=== PATIENT | female | born 1955 | race Caucasian/White ===

== ENCOUNTER 2019-06-15 08:57 | Outpatient (CLI) | payer MEDICARE, OTHER, SELFPAY ==
[2019-06-15 10:14] LABS: Blood Urea Nitrogen 22 mg/dL (7-17); Calcium 9.5 mg/dL (8.4-10.2); Carbon Dioxide 29 mmol/L (22-30); Chloride 97 mmol/L (98-107); Estimated Glomerular Filt Rate 45; Glucose 88 mg/dL (65-105); Potassium 3.8 mmol/L (3.4-5.0); Sodium 135 mmol/L (137-145)
== END 2019-06-15 08:58 | disposition home or self-care (01) ==
PROVIDERS: PCP Family Medicine
DX: I50.32 Chronic diastolic (congestive) heart failure (principal)
CPT/HCPCS: 36415; 80048

== ENCOUNTER 2020-03-28 08:51 | Outpatient (NON) | payer MEDICARE, OTHER, SELFPAY ==
[2020-03-29 21:14] LABS: SARS-CoV-2 RNA PCR Negative
== END 2020-03-28 08:52 ==
LOC: ANHCOVIDDT 08:53
PROVIDERS: PCP Family Medicine; Visit Provider Family Medicine
DX: R50.9 Fever, unspecified (principal); Z20.828 Contact with and (suspected) exposure to other viral communicable diseases
CPT/HCPCS: 87635; C9803; U0003

== ENCOUNTER 2020-07-17 13:29 | Outpatient (CLI) | payer MEDICARE, OTHER, SELFPAY | END 2020-07-17 13:30 | disposition home or self-care (01) | LOC: ANHCOVIDVC 13:29 | PROVIDERS: PCP Family Medicine | DX: Z23 Encounter for immunization (principal) | CPT/HCPCS: 0001A; 91300 ==

== ENCOUNTER 2020-08-07 13:41 | Outpatient (CLI) | payer MEDICARE, OTHER, SELFPAY | END 2020-08-07 13:42 | disposition home or self-care (01) | LOC: ANHCOVIDVC 13:41 | PROVIDERS: PCP Family Medicine | DX: Z23 Encounter for immunization (principal) | CPT/HCPCS: 0002A; 91300 ==

== ENCOUNTER 2020-11-20 08:41 | Emergency (ER) | payer MEDICARE, OTHER, SELFPAY ==
--- NOTE | ~2020-11-20 | CT_ITS ---
EXAMINATION: CT abdomen pelvis w con DATE: 11/20/2020 10:08 INDICATION: Lower abdominal pain. Nausea, vomiting, diarrhea TECHNIQUE: Computed tomography (CT) of the abdomen and pelvis was performed with 100 cc Omnipaque 350 intravenous contrast. Automated exposure control and iterative reconstruction technique were employe d. Exam dose: 1523.04 mGy-cm total exam DLP. COMPARISON: 04/01/2019 CT abdomen pelvis FINDINGS: There is mild atelectasis at the lung bases, left greater than right. Status post sternotomy and tricuspid valve replacement. Cardiomegaly. No hepatic space-occupying mass lesion is evident. Status post cholecystectomy. No bile duct or pancr eatic duct dilatation. No pancreatic mass lesion or calcification is evident. Normal splenic size. Normal morphology of the adrenal glands. No renal mass lesion or urinary tract calculus or hydroureteronephrosis. The urinary bladder is unrem arkable. Status post hysterectomy. Normal caliber of the abdominal aorta. No intraperitoneal or retroperitoneal or pelvic mass lesion or adenopathy or ascites. There is inflammatory fat stranding adjacent to the mid to distal sigmoid colon and numerous divertic kahlil. There are scattered areas of intraperitoneal gas some adjacent to the liver and within the umbil ical hernia. Small amount of free fluid in the dependent pelvis. No bowel obstruction is detected. Liquid stool is noted in the right colon. Hemangioma of L2 vertebral body. IMPRESSION: Diverticulitis of the sigmoid colon with associated mild intraperitoneal free air, small amount of dependent free fluid in the pelvis Reviewed, dictated and finalized at [facility]. Reviewed, dictated and finalized at location [facility]. IMPRESSION: Diverticulitis of the sigmoid colon with associated mild intraperi toneal free air, small amount of dependent free fluid in the pelvis
[2020-11-20 08:52] VITALS: BP 96/50; PULSE 80; RESP 18; TEMP 36.6; O2SAT 97
[2020-11-20 09:10] LABS: Basophils Percent Auto 0.3 % (0.2-1.2); Eosinophils Absolute Auto 0.1 K/mm3 (0-0.3); Eosinophils Percent Auto 2.1 % (0-4.4); Hematocrit 34.6 % (37.0-47.0); Immature Granulocyte Absolute 0.02 K/mm3 (0.00-0.031); Immature Granulocyte Percent A 0.3 % (0-0.5); Lymphocytes Absolute Auto 0.62 K/mm3 (0.9-3.2); Mean Corpuscular HGB Conc 31.8 g/dl (32-36); Mean Corpuscular Hemoglobin 27.1 pg (26-34); Mean Corpuscular Volume 85.2 fl (80-100); Mean Platelet Volume 10.9 fl (7.4-10.4); Monocytes Absolute Auto 0.4 K/mm3 (0.1-0.6); Monocytes Percent Auto 5.9 % (2.6-8.5); Neutrophils Absolute Auto 5.1 K/mm3 (1.3-6.7); Neutrophils Percent Auto 81.4 % (45.5-73.1); Platelet Count Result 186 k/mm3 (150-375); Red Blood Count 4.06 M/mm3 (4.2-5.4); Red Cell Distribution Width 16.5 % (11.5-14.5); White Blood Count 6.2 K/mm3 (4.5-10.0)
[2020-11-20 09:19] LABS: Alanine Aminotransferase 34 U/L (4-35); Albumin Level 3.7 g/dL (3.5-5.1); Alkaline Phosphatase 90 U/L (38-126); Anion Gap 5 mmol/L (8-16); Aspartate Amino Transferase 27 U/L (14-36); Bilirubin,Total 0.9 mg/dL (0.2-1.3); Blood Urea Nitrogen 26 mg/dL (7-17); Calcium 8.8 mg/dL (8.4-10.2); Carbon Dioxide 35 mmol/L (22-30); Chloride 93 mmol/L (98-107); Estimated CRCL calculation 40 ml/min; Estimated Glomerular Filt Rate 32; Glucose 119 mg/dL (65-110); Lipase 21 U/L (23-300); Potassium 3.6 mmol/L (3.4-5.0); Sodium 133 mmol/L (137-145)
--- NOTE | 2020-11-20 09:21 | ED.ABDPAIN ---
HPI - Abdominal Pain General Chief Complaint: Abdominal Pain Stated Complaint: Right Lower Quad Pain Time Seen by Provider: 11/20/20 08:51 Source: patient Mode of arrival: ambulatory Limitations: no limitations History of Present Illness HPI narrative: Patient is a 65 year old female who presents with complaints of abdominal pain x 3 days, increasing over the past day. Patient rates pain as 10/10. She reports feeling of fullness. She reports nausea with dry heaving yesterday. She reports diarrhea starting last pm. Patient reports she felt febrile but has not taken temperature. Patient reports Covid vaccine x 2 and denies recent known exposure. She reports taking Gas X without relief. Patient has a significant cardiac history, lupus and history of CVA. Patient does take anticoagulants. Related Data Home Medications Medication Instructions Recorded Confirmed bumetanide 11/20/20 bumetanide 11/20/20 duloxetine mg PO 11/20/20 duloxetine mg PO 11/20/20 hydrocodone-acetaminophen 11/20/20 11/20/20 losartan 11/20/20 lubiprostone [Amitiza] mcg PO 11/20/20 metoprolol succinate PO 11/20/20 metoprolol succinate PO 11/20/20 omeprazole 11/20/20 potassium chloride [Klor-Con] 11/20/20 11/20/20 ropinirole mg 11/20/20 spironolactone 11/20/20 zolpidem PO 11/20/20 Allergies Allergy/AdvReac Type Severity Reaction Status Date / Time adhesive tape Allergy Unknown RASH, SKIN Verified 11/20/20 09:29 TEARS isosorbide Allergy Unknown NAUSEA Verified 11/20/20 09:29 hydroxychloroquine Allergy Hives Verified 11/20/20 09:29 [From Plaquenil] pregabalin [From Lyrica] Allergy Hives Verified 11/20/20 09:29 Sulfa (Sulfonamide Allergy Rash Verified 11/20/20 09:29 Antibiotics) topiramate AdvReac Mild NAUSEA Verified 11/20/20 09:29 gabapentin AdvReac Unknown NAUSEA Verified 11/20/20 09:29 meloxicam AdvReac Unknown NAUSEA Verified 11/20/20 09:29 COTTONSEED OIL Allergy Unknown SWELLING Uncoded 07/18/17 11:29 AT INJECTION SITE Review of Systems Review of Systems: Narrative: CONSTITUTIONAL: Reports feeling feverish, denies chills or sweats. EYES: Denies visual changes, redness, or discharge. ENT: Denies rhinorrhea, congestion, sore throat, or otalgia. CARDIOVASCULAR: Denies chest pain, palpitations, or edema. RESPIRATORY: Denies cough or dyspnea. GASTROINTESTINAL: Reports abdominal pain, nausea, vomiting, and diarrhea. GENITOURINARY: Denies dysuria or hematuria. SKIN: Denies rash or itching. MUSCULOSKELETAL: Denies back pain, joint pain, or myalgia. NEUROLOGIC: Denies headache, numbness, dizziness, or weakness. PSYCHIATRIC: Denies anxiety or depression. [facility] Past Medical History Medical History (Updated 11/20/20 @ 11:00 by BROOK Ulrich) Afib Anemia Anxiety Arthritis ASD (atrial septal defect) Asthma Brain bleed CAD (coronary artery disease) Carpal tunnel syndrome CHF (congestive heart failure) Chronic back pain Diverticulitis Fibromyalgia GERD (gastroesophageal reflux disease) GI bleed Gout Hiatal hernia History of bleeding ulcers History of blood transfusion HTN (hypertension) Hypothyroid Lupus per patient history Migraine Pacemaker Panic attack Sleep apnea Surgical History Surgical History History of adenoidectomy History of bladder surgery History of cardiac catheterization History of carpal tunnel release History of cholecystectomy History of hysterectomy History of knee replacement, total History of Quin fundoplication History of spinal fusion History of tonsillectomy History of tubal ligation Hx of CABG Family History Family History Father Patient's father is in good health Social History Social History (Updated 11/20/20 @ 09:25 by BROOK Ulrich) Smoking status: Never smoker Alcohol intake: never Substance use: never Living a
[2020-11-20] MEDS: MORPHINE SULFATE (*CRX) 4 MG/ML INJ IV PUSH (09:35)
[2020-11-20 09:36] LABS: Add Urine Microscopic? YES; Appearance Urine Cloudy (Clear); Bacteria Urine Trace /hpf; Bilirubin Urine Negative (Negative); Blood Urine Negative (Negative); Color Urine Amber (Yellow); Glucose Urine UA Negative (Negative); Hyaline Casts Urine 30-49 /lpf; Ketones Urine Negative (Negative); Leukocyte Esterase Ur 2+ LEU/UL (Negative); Mucus Urine Rare /lpf; Nitrate Urine Negative (Negative); Protein Urine Negative (Negative); Specific Grav Ur 1.014 (1.001-1.035); Squamous Epithelial Cell Urine Occasional /hpf (Few); Transitional Epi Cells Urine Rare /hpf (None Seen); Urobilinogen Urine Negative mg/dL (<2.0)
[2020-11-20] MEDS: ONDANSETRON INJ 4 MG/2 ML VIAL IV PUSH (09:37)
[2020-11-20 11:38] VITALS: BP 126/62; PULSE 81; RESP 16; O2SAT 100
== END 2020-11-20 11:39 | disposition home or self-care (01) ==
PROVIDERS: Emergency Medicine; Emergency Provider Nurse Practitioner; PCP Family Medicine
DX: K57.92 Diverticulitis of intestine, part unspecified, without perforation or abscess without bleeding (principal); I48.91 Unspecified atrial fibrillation; F41.9 Anxiety disorder, unspecified; I11.0 Hypertensive heart disease with heart failure; I50.9 Heart failure, unspecified; E03.9 Hypothyroidism, unspecified; I25.10 Atherosclerotic heart disease of native coronary artery without angina pectoris; Z79.891 Long term (current) use of opiate analgesic
CPT/HCPCS: 36415; 74177; 80053; 81001; 83690; 85025; 96374; 96375; 99284; J2270; J2405; Q9967

== ENCOUNTER → 2021-10-23 08:47 | Outpatient (CLI) | payer MEDICARE, OTHER, SELFPAY ==
--- NOTE | ~2021-10-23 | CT_ITS ---
EXAMINATION: CT lumbar spine wo con DATE: 10/23/2021 09:04 INDICATION: Lumbar radiculopathy . TECHNIQUE: Computed tomography (CT) of the lumbar spine was performed without intravenous contrast. A utomated exposure control and iterative reconstruction technique were employed. The dose-length produ ct was 888.10 mGy-cm. COMPARISON: None. FINDINGS: 5 nonrib-bearing lumbar-type vertebral bodies. The last fully formed disc space is designat ed L5-S1. Lumbar scoliosis. Pedicles intact. Normal vertebral body alignment. Vertebral body heights preserved. Mild disc space narrowing at L4-5 and L5-S1. L2 hemangioma. Mild degenerative change in th e right SI joint. Individual levels discussed as follows: T11-T12: Mild diffuse bulge. There is mild facet joint osteoarthritis. There is no neural foraminal s tenosis. There is no central canal stenosis. T12-L1: The disc does not extend beyond the endplate margin. There is no facet joint osteoarthritis. There is no neural foraminal stenosis. There is no central canal stenosis. L1-L2: The disc does not extend beyond the endplate margin. There is no facet joint osteoarthritis. T here is no neural foraminal stenosis. There is no central canal stenosis. L2-L3: Mild diffuse bulge. There is mild facet joint osteoarthritis. There is no neural foraminal ted nosis. There is no central canal stenosis. L3-L4: Mild diffuse bulge with a left foraminal component. There is moderate right and mild left face t joint osteoarthritis. There is mild left neural foraminal stenosis. There is no central canal steno sis. L4-L5: Moderate diffuse bulge, with a left foraminal predominance, and likely with a 6 mm right parac entral protrusion. There is moderate facet joint osteoarthritis. There is mild neural foraminal steno sis. There is mild central canal stenosis. L5-S1: Moderate diffuse bulge. There is severe facet joint osteoarthritis. There is moderate right an d mild left neural foraminal stenosis. There is mild central canal stenosis. IMPRESSION: 1. Moderate L4-5 degenerative disc disease, likely with a 6 mm right paracentral protrusion that narr ows the right lateral recess at this level. 2. Moderate right L5-S1 neural foraminal narrowing secondary to a combination of moderate degenerativ e disc change and severe facet arthropathy. 3. More mild degrees of degenerative disc change, facet arthropathy, canal narrowing, and neural fora robbie narrowing described above. Reviewed, dictated and finalized at [facility]. IMPRESSION: 1. Moderate L4-5 degenerative disc disease, likely with a 6 mm right paracentra l protrusion that narrows the right lateral recess at this level. 2. Moderate right L5-S1 neural foraminal narrowing secondary to a combination o f moderate degenerative disc change and severe facet arthropathy. 3. More mild degrees of degenerative disc change, facet arthropathy, canal narr owing, and neural foraminal narrowing described above.
== END ==
PROVIDERS: PCP Family Medicine; Visit Provider Nurse Practitioner Family
DX: M54.16 Radiculopathy, lumbar region (principal); M51.36 Other intervertebral disc degeneration, lumbar region; M51.26 Other intervertebral disc displacement, lumbar region
CPT/HCPCS: 72131

== ENCOUNTER 2022-04-24 07:23 | Outpatient (CLI) | payer MEDICARE, OTHER, SELFPAY ==
[2022-04-24 08:34] LABS: INR 1.6
== END 2022-04-24 07:24 | disposition home or self-care (01) ==
LOC: ANHLAB 07:26
PROVIDERS: PCP Family Medicine; Visit Provider Pain Medicine Pain Medicine
DX: Z79.01 Long term (current) use of anticoagulants (principal)
CPT/HCPCS: 36415; 85610

== ENCOUNTER 2023-12-24 07:05 | Outpatient (CLI) | payer MEDICARE, OTHER, SELFPAY ==
[2023-12-24 08:33] LABS: INR 1.1; Prothrombin Time 14.3 Seconds (11.1-14.7)
== END 2023-12-24 07:06 | disposition home or self-care (01) ==
LOC: ANHLAB 07:09
PROVIDERS: Visit Provider Pain Medicine Pain Medicine
DX: Z79.01 Long term (current) use of anticoagulants (principal)
CPT/HCPCS: 36415; 85610

== ENCOUNTER 2024-01-14 09:23 | Outpatient (CLI) | payer MEDICARE, OTHER, SELFPAY ==
[2024-01-14 10:11] LABS: Prothrombin Time 14.1 Seconds (11.1-14.7)
== END 2024-01-14 09:24 | disposition home or self-care (01) ==
LOC: ANHLAB 09:27
PROVIDERS: Visit Provider Pain Medicine Pain Medicine
DX: Z79.01 Long term (current) use of anticoagulants (principal)
CPT/HCPCS: 36415; 85610

== ENCOUNTER 2024-04-13 06:59 | Outpatient (CLI) | payer MEDICARE, OTHER, SELFPAY ==
[2024-04-13 07:47] LABS: INR 1.5; Prothrombin Time 18.2 Seconds (11.1-14.7)
== END 2024-04-13 07:00 | disposition home or self-care (01) ==
PROVIDERS: Visit Provider Pain Medicine Pain Medicine
DX: Z79.01 Long term (current) use of anticoagulants (principal)
CPT/HCPCS: 36415; 85610

== ENCOUNTER 2024-04-14 06:40 | Outpatient (CLI) | payer MEDICARE, OTHER, SELFPAY ==
[2024-04-14 07:10] LABS: INR 1.3; Prothrombin Time 16.2 Seconds (11.1-14.7)
== END 2024-04-14 06:41 | disposition home or self-care (01) ==
LOC: ANHLAB 06:42
PROVIDERS: Visit Provider Pain Medicine Pain Medicine
DX: Z79.01 Long term (current) use of anticoagulants (principal)
CPT/HCPCS: 36415; 85610

== ENCOUNTER 2025-01-06 15:30 | Outpatient (CLI) | payer MEDICARE, OTHER, SELFPAY ==
--- OUTSIDE RECORDS SUMMARY | 2011-11-26 09:10 | XMS_ITS | Continuity of Care Document ---
Author Organization [facility] Address [address] [place] [address] Phone Care Team Providers Care Tumbling And Rolling Supervisor Name Role Phone Unavailable Unavailable Unavailable Procedures Procedure Date Work/medical disability examination JAMEY X-ray exam of wrist, complete 2 X-ray exam of wrist, complete 2 Advance Directives Directive Yes / No Effective Date File Name Resuscitation Not Answered N/A N/A Life Support Not Answered N/A N/A Intubation Not Answered N/A N/A Antibiotics Not Answered N/A N/A IV Fluid Support Not Answered N/A N/A Tube Feed Not Answered N/A N/A Other Directive N/A N/A WARNING:The information contained in this section is historical and is provided for information only and does not constitute a legal document or any assurance that the information is still accurate. Please verify the information with the payne of the legal document before using it for clinical purposes. Encounters Encounter Description Practice Location Reason(s) For Visit Diagnoses Date Provider Providers Copied on Encounter Work/medical disability examination [facility], [address], [place], [place], [id number], [place] tel:[phone] [facility] RM 2 No Information Family History Family Member Type Diagnosis Age At Onset No Information Payers Payer name Insurance type Covered alliance party ID Authoriza tion(s) [facility] Workers Compensation Adm WC [id number] Social History Type Description Quantity Date Captured Comments Alcohol Use Details Unknown Caffeine Use Details Unknown Tobacco Use Status No Information Smoking Status Never smoker Sex Female Vital Signs Date / Time: Height Weight BMI Pulse Rate Blood Pressure Temperature Respiratory Rate Body Surface Area Head Circumference Head Circ. Percentile Wt./Robert. Percentile BMI percentile Pulse Ox Inhaled Ox 1:19 PM 68.00 in 260.00 lbs 39.5 3 kg/m eter (2) 146/90 mm[Hg] Chief Complaint And Reason For Visit No Information Reason For Referral Reason For Referral No Information History Of Present Illness Encounter Date Complaint History Of Prese nt Illness No Information Functional Status Date Functional Assessmen t No Information Instructions Date Instruction Additional Infor mation No Information Assessments Type Assessment Date No Information Patient Care Teams Name Effective Dates (start - stop) Status Members No Information
--- OUTSIDE RECORDS SUMMARY | 2025-01-06 15:35 | XMS_ITS | Patient Health Record ---
Author Organization [facility] Address [address] [place] [address] Care Team Providers Care Research Program Manager Name Role Phone Andi CADET, [facility] Primary Care Provider Unavaila ble Allergies Allergen (clinical drug ingredient) Drug/Non Drug Allergy documented on EMR Reaction Allergy Type Onset Date Status Lyceria (uncoded) Unknown Allergy Ac tive Topomax with Meloxic am (uncoded) Unknown Allergy Active Cottonseed Oil Unknown Drug Allergy Ac tive gabapentin Gabapentin Unknown Drug Allergy Activ e Imdur Unknown Drug Allergy Active tramadol Tramadol HCl Unknown Drug Allergy Acti ve Reason For Referral No Information Medications Medication SIG (Take, Route, Frequency, Duration) Notes Start Date End Date Status MiraLax Active Eliquis Active Klor-Con Active Pepcid 20 MG 1 tablet Orally twice a day for 30 day(s) 08/24/2019 Active rOPINIRole HCl Activ e Amitiza 8 MCG Orally Active Cymbalta Active Mupirocin Active Metoprolol Succinate Active Spironolactone Activ e Xopenex Active Levothyroxine Sodium Active OTC/Vitamins Zyrtec, Melatonin, Calcium, Jeronimo Red, Tylenol with codeine, COQ10 Active Losartan Potassium A ctive Inhaler Decongestant Active Furosemide Active HYDROcodone-Acetaminoph en Active Allopurinol Active amLODIPine Besylate Active Zolpidem Tartrate Ac tive Immunizations Vaccine Route Administration Date Status Comme nts Influenza, seasonal, injecta ble, preservative free, 3 yrs and above Unknown 02/16/2019 Administered Social History Tobacco Use: Social History Observation Description Date Details (start date - stop date) Never Smoker NA - NA Tobacco Use/Smoking Question Answer Notes Are you a nonsmoker Problems Problem Type SNOMED Code ICD Code Onset Dates Problem Status W/U Status Risk Notes Problem Nausea (578982816) Nausea (R11.0) Active confirmed Problem Hematochezia (661696818) Hematochezia (K92.1) Active confirmed Problem Abdominal pain (21456008) Abdominal pain (R10.9) Active confirmed She comes in fo r abdominal pain that occurs in the right upper quadrant and radiates to her left lower side. She describes it as a sharp shooting pain. Her discomfort was so severe in early August and she went to the ER, where both blood work and a CT scan were unremarkable. The CT revealed constipation, which is not new. She has known IBS-C. She has associated nausea. Her PCP recommend she begin both a PPI and Zofran. She has not started the Prilosec, but Zofran has improved her nausea. She has undergone two Quin Fundoplication surgeries, most recent was in 2009. She has a history of peptic ulcer disease. Differential diagnosis includes peptic ulcer, gastritis, partial bowel obstruction, gallbladder disease, or others. Problem Family history of malignant neoplasm of gastrointestinal tract (017604300) Family history of colon cancer (Z80.0) Active confirmed Problem History of polyp of colon (929871465) History of colon polyps (Z86.010) Active confirmed Her last colonoscopy was in 2018 with findings of polyps. Her sister was diagnosed with colon cancer at the age of 57. She is due for a repeat colonoscopy in 2020. A copy of her last procedure was not available for review today. Problem Dysphagia (38371778) Dysphagia (R13.12) Active confirmed This has been o n and off for years with both solid and liquids, most likely a result of her Quin Fundoplication surgeries. She denies having to vomit items up. She has been dilated in the past. Her most recent EGD was in 2018, but a copy is not available for review today. Problem Long-term current use of drug therapy (005798439) Antiplatelet or antithrombotic long-term use (Z79.02) Active confirmed Problem Chronic constipation (962877421) Chronic constipation (K59.09) Active confirmed She manages thi s symptom with MiraLax, one capful daily, and Amitiza. Problem Cardiac pacemaker in situ (149585442) History of pacemaker (Z95.0) Active confirmed Problem History of irritable bowel syndrome (37040188955241) History of IBS (Z87.19) Active confirmed Problem Atrial fibrillation (03422042) A-fib (I48.91) Active confirmed She is in AFib. She has a pacemaker in place. She was scheduled to undergo an ablation, but canceled related to Covid-19. She take Eliquis daily. She is seen by her handbag framer and electrophysiolog ist as directed. Plan Of Treatment Pending Test Test Name Order Date Xray Upper GI w/ Small Bowel 08/19/2019 Insurance Providers Payer Name Payer Address Payer Phone Subscriber Number Group Number Insured Name Patient Relationship to Insured Coverage Start Date Coverage End Date [facility] Medicare Advantage PPO [address] [address] [place] [address] [id number] Jarek Fischer Spouse - patient is the spouse of the insured [employer] [address] [place] [address] [id number] Jarek Fischer Spouse - patient is the spouse of the insured Medical (General) History Medical History History ICD Code IBS GERD Hiatal hernia Colon polyps Diverticulosis/Diverticlulitis Ulcers Anemia Fibromyalgia Gout Asthma BHATT CHF Hypertension Stroke Kidney problems Migraines Sleep apnea Hearing loss Thyroid disease Surgical History Surgery Date(Month/Year) EGD (outside provider) 2018 Colonoscopy (outside provider) 2018 Hiatal hernia repair Sinus Tonsillectomy Open heart Bladder sling Carpal tunnel Cervical fusion Right meniscus removal Cholecystectomy Maze oblation for A-fib x2 Sprague on back of neck Right knee arthroscopy Pacemaker placement Right knee replacement Osteoma bone tumor Hospitalization History Reason Date(Month/Year) Blood clot
--- OUTSIDE RECORDS SUMMARY | 2025-01-06 15:35 | XMS_ITS | Patient Health Record ---
Author Organization [facility] Address [address] [place] [address] Care Team Providers Care Nurse Infection Control Name Role Phone UNKNOWN, UNKNOWN Primary Care Provider Unavailab saranya Navarroa Patricia Unavailable [phone] Allergies Allergen (clinical drug ingredient) Drug/Non Drug Allergy documented on EMR Reaction Allergy Type Onset Date Status Adhesive tape (uncoded) Unknown Allergy Active Cottonseed (uncoded) Unknown Allergy Active Latex Latex tape (uncoded) Unknown Allergy Active Keflex Unknown Drug Allergy Active pregabalin Lyrica Unknown Drug Allergy Active gabapentin Gabapentin Unknown Drug Allergy Activ e Non-steroidal anti-inflammatory agent (FN) NSAIDs Unknown Drug Allergy Active Substance with sulfonamide structure and antibacterial mechanism of action (substance) Sulfa Antibiotics Unknown Drug Allergy Active tramadol Tramadol Unknown Drug Allergy Active Reason For Referral No Information Medications Medication SIG (Take, Route, Frequency, Duration) Notes Start Date End Date Status Klor-Con Active rOPINIRole HCl Activ e Spironolactone 25 MG Oral; Duration: 90 Days Active Systane Active busPIRone HCl 10 MG Oral; Duration: 30 Days Active Losartan Potassium A ctive Warfarin Sodium 5 MG Oral; Duration: 90 Days Active MiraLax Active Synthroid 112 MCG TAKE 1 TABLET BY AREN TH DAILY Oral; Duration: 90 Days Active ZyrTEC Active Pantoprazole Sodium 40 MG Oral; Duration: 76 Days Active Calcium Active HYDROcodone-Acetaminophen 5-325 MG Oral; Duration: 7 Days Activ e Tylenol Arthritis Pain Active Bumetanide 1 MG Oral; Duration: 30 Days Active Tylenol with Codeine #3 Active Zolpidem Tartrate ER 12.5 MG TAKE 1 TABL ET BY MOUTH NIGHTLY AT BEDTIME Oral; Duration: 90 Days Active Magnesium Active Metoprolol Succinate ER 25 MG Oral; Duration: 90 Days Acti ve B Complex Active Colchicine 0.6 MG Oral; Duration: 15 Days Active Vitamin D3 Active Cymbalta Active Social History Tobacco Use: Social History Observation Description Date Details (start date - stop date) Never Smoker NA - NA Tobacco Use/Smoking Question Answer Notes Are you a nonsmoker Plan Of Treatment No Information Insurance Providers Payer Name Payer Address Payer Phone Subscriber Number Group Number Insured Name Patient Relationship to Insured Coverage Start Date Coverage End Date [employer] MED[employer]ARE [address] [place] [address] [id number] Kacie Fischer Self - patient is the insured [employer] [address] [place] [phone] [id number] Kacie Fischer Self - patient is the insured Medical (General) History Medical History History ICD Code A-fib, Anemia, anxiety disor myrna, RA, Asthma, GERD/reflux, Gout, CHF, Kidney problems, Liver disease (BHATT), Migraines, Neuropathy of feet, Osteoporosis, Pacemaker, Pneumonia, Stroke(06/09/04), Thyroid problems, Vein problems, Surgical History Surgery Date(Month/Year) Sinus surgery, 1972,1986 Tonsillectomy/[place] 1958, ASD repair open heart 07/1979 Complete hysterectomy 09/1979 Bladder sling 1998 Carpal tunnel 1998 Osteoma Bone tumor forehead sinus(not ab le to take out) 07/2017 Open heart- new tricuspid valve, new pac emaker, new lead 09/2019 nodules removed back of neck 11/2020 Colorectal surgery for perfo ration of sigmoid colon, Fistula bladder perf 06/2021
--- OUTSIDE RECORDS SUMMARY | 2025-01-06 15:35 | XMS_ITS | Clinical Summary ---
Author Organization [facility] Address [address] [place] [address] Care Team Providers Care Rn Delivery Name Role Phone [place] Daily [facility] Primary Care Provider + Source Comments [facility],non-owned Affiliates and Associated Physician Practices is amultiple site organization consisting of ambulatory clinics and hospital sitesin [place], [place], [place] and [place]. This disclosure is being madepursuant to the Care Everywhere program and may not contain all information available regarding this patient. Last updated 18.[facility] Allergies Active Allergy Reactions Criticality Noted Date Comments Cottonseed Oil 07/03/2015 Latex 07/03/2015 Meloxicam 07/03/2015 Topiramate 07/03/2015 Medications * Be aware that medications may not be up to date on this document. Alwaysverify current medications with the patient. losartan (COZAAR) 50 MG tablet Take 50 mg by mouth 2 times daily Active spironolactone (ALDACTONE) 25 MG tablet Take 25 mg by mouth once daily Active cetirizine (ZYRTEC) 10 MG tablet Take 10 mg by mouth once daily Active furosemide (LASIX) 20 MG tablet Take 20 mg by mouth once daily Active potassium chloride (KLOR-CON M) 20 MEQ tablet Take 20 mEq by mouth once daily Active cyanocobalamin (VITAMIN B-12) 100 MCG tablet Take 100 mcg by mouth once daily Active B Complex Vitamins (VITAMIN B COMPLEX) tablet Take 1 Tab by mouth once daily Active omega 3 (FISH OIL) 1200 MG capsule Take 1,200 mg by mouth once daily Active multivitamin daily (THERAGRAN) tablet Take 1 Tab by mouth daily with food Active Coenzyme Q10 (COQ10) 400 MG Take 1 Cap by mouth once daily Active Calcium Carb-Cholecalc iferol 1000-800 MG-UNIT Take 1 Tab by mouth once daily Active DULoxetine (CYMBALTA) 60 MG capsule Take 60 mg by mouth once daily Active DULoxetine (CYMBALTA) 30 MG capsule Take 30 mg by mouth once daily Active levothyroxine (SYNTHROID) 75 MCG tablet Take 75 mcg by mouth daily before breakfast Active amLODIPine (NORVASC) 10 MG tablet Take 10 mg by mouth once daily Active ALPRAZolam (XANAX) 0.5 MG tablet Take 0.5 mg by mouth 3 times daily as needed for Anxiety Active clonazePAM (KLONOPIN) 0.5 MG tablet Take 0.5 mg by mouth at bedtime Active eletriptan (RELPAX) 40 MG tablet Take 40 mg by mouth once as needed for Migraine Active Hydrocodone-Ac etaminophen 10-300 MG Take 1 Tab by mouth as needed Active SUMAtriptan (IMITREX) 6 MG/0.5ML injection Inject 6 mg subcutaneously as needed for Migraine Active zolpidem (AMBIEN) 10 MG tablet Take 10 mg by mouth once daily Active onabotulinumto coreen A (BOTOX) 100 UNITS injection by Intradermal route Every 90 days Active levalbuterol (XOPENEX) 0.31 MG/3ML nebulizer solution Inhale 0.31 mg by mouth as needed Active levalbuterol (XOPENEX) 45 MCG/ACT inhaler Inhale 2 Puffs by mouth every 6 hours Active lamoTRIgine (LAMICTAL) 25 MG tablet Take 1 Tab by mouth once daily 30 Tab 5 6 Active apap-isomethep tene-dichloral (MIDRIN) 325-65-100 MG capsule Take 1 Cap by mouth as directed Migraine headache: 2 capsules at once followed by 1 capsule every hour until headache is relieved, up to 5 capsules within a 12-hour period. Tension headache: 1 or 2 capsules every 4 hours, up to 8 capsules per day. 30 Cap 1 6 Active Active Problems No known active problems Family History Medical History Relation Name Comments Alcohol abuse Father Hypertension Father ND Father Migraine Father Stroke Father Hypertension Mother Cancer - Ovarian Sister Migraine Sister Thyroid Disease Sister Relation Name Status Comments Father Mother Sister Social History Tobacco Use Types Packs/Day Years Used Date Smoking Tobacco: Never Smokeless Tobacco: Never Alcohol Use Standard Drinks/Week Comments No 0 (1 standard drink = 0.6 oz pur e alcohol) Comments Unknown Sex and Gender Information Value Date Recorded Sex Assigned at Not on file Legal Sex Female 1:22 PM 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 Gender Identity Not on file Sexual Orientation Not on file 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 Not on file Not on fi le Last Filed Vital Signs Vital Sign Reading Time Taken Comments Blood Pressure 138/86 07/03/2015 12:15 PM 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 Pulse 64 07/03/2015 12:15 PM 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 Temperature 36.8 C (98.2 F) 12/05/2014 2:49 PM CDT Respiratory Rate 14 07/03/2015 12:1 5 PM 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 Oxygen Saturation 95% 09/13/2014 12: 08 PM CDT Inhaled Oxygen Concentration - - Weight 117.6 kg (259 lb 4.8 oz) 016 12:15 PM 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 Height 170.2 cm (5' 7) 07/03/2015 12:1 5 PM 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 Body Mass Index 40.61 07/03/2015 12:15 PM 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 Plan of Treatment Health Maintenance Due Date Last Done Comments BONE DENSITY TESTING 1955 COLOGUARD (AGES 45-75) - COL ON CA SCREENING 1955 COLON MONITORING 1955 COLONOSCOPY - COLON CA SCREENING 1953 CT COLONOGRAPHY - COLON CA SCREENING 1955 Colorectal Cancer Screening 1955 FIT - COLON CA SCREENING 1955 FLEX SIG - COLON CA SCREENING 1955 LIPID TESTING 1955 MAMMOGRAM 1955 HEPATITIS C SCREENING 09/13/1971 DTAP/TDAP/TD VACCINES (1 - Tdap) 1972 PNEUMOCOCCAL VACCINE 50+ (1 of 1 - PCV) 09/18/2003 ZOSTER VACCINE (1 of 2) 09/18/2003 Respiratory Syncytial Virus (RSV) Vaccine Pt: or over 60 yrs (1 - Risk 60-74 years 1-dose series) 2013 DEPRESSION SCREENING 05/05/2024 COVID-19 VACCINE (1 - 2023-2 5 season) 2025 INFLUENZA VACCINE (#1) 2025 HEPATITIS B VACCINE Aged Out No longe r eligible based on patient's age to complete this topic HIB VACCINE Aged Out No longer eligi ble based on patient's age to complete this topic HPV VACCINE Aged Out No longer eligi ble based on patient's age to complete this topic MENINGOCOCCAL (Group B) VACC INE SHARED DECISION-MAKING Aged Out No longer eligibl e based on patient's age to complete this topic MENINGOCOCCAL GROUPS A/C/Y/W VACCINE Aged Out No longer eligible b ased on patient's age to complete this topic Insurance [employer] Care Teams Rn Delivery Relationship Specialty Start Date End Date Daily Bhagat APRN-CNP [address] [place] [id number] [facility] - General 05/31/15
--- OUTSIDE RECORDS SUMMARY | 2025-01-06 15:35 | XMS_ITS | Clinical Summary ---
Author Organization [facility] Address [address] [place] [address] Care Team Providers Care Truckload Owner Operator Name Role Phone Maycol Foster MD Unavailable [phone] La Thacker NP Primary Care Provider [phone] Allergies Active Allergy Reactions Criticality Noted Date Comments Amlodipine Angioedema,Swelling, Praveen h High 10/29/2022 Face and lip swelling and redness. Pt states tongue swelling in the past. Doxycycline Other (see comment) High 04/11/2021 Throat swelling Alendronate Other (see comment) 04/16/2023 Nausea, swelling and bloating of stomach, vomiting. Gabapentin Nausea Only,Other (s ee comment),Swelling Medium 04/25/2023 Hydralazine Swelling Medium 10/31/2022 Hydroxychloroquine Other (see comment) Low 03/17/20 17 Abdominal pain Iron Dextran Anaphylaxis High 02/22/2022 Isosorbide Nitrate Nausea Only,Shortnes s of Breath High 05/23/2015 Heart races Latex Rash,Swelling Medium 07/23/2011 Levofloxacin Contact Dermatitis High 02/15/2023 Meloxicam Other (see comment),Palpitations,S hortness of Breath High 05/23/2015 Heart races Left arm hurts Pregabalin Chest pressure,Shortness of Breath High 12/18/2017 leg edema Sertraline Dizziness Medium 10/06/2019 Sulfa Antibiotics Angioedema,Rash Medium 11/28/2020 Sulfasalazine Swelling Medium 03/17/2017 Tongue swelling Topiramate Nausea Only,Rash,Swelling Medium 05/23/2015 Tramadol Rash Medium 05/03/2019 Trazodone Headache Medium 06/16/2019 Medications Melatonin 10 MG Cap Take 10 mg by mouth as needed. Active Propylene Glycol (SYSTANE BALANCE OP) Apply to eye as needed (dry eyes). Active cetirizine (ZYRTEC) 10 MG tablet Take 1 tablet (10 mg total) by mouth daily. Active colchicine 0.6 MG capsule Take 2 capsules (1.2 mg total) by mouth as needed. 02/20/20 Active cyclobenzaprine (FLEXERIL) 10 MG tablet Take 1 tablet (10 mg total) by mouth 2 (two) times daily as needed for Muscle Spasms. Not taking right now 01/16/20 Active DULoxetine (CYMBALTA) 60 MG capsule Take 1 capsule (60 mg total) by mouth daily. Take with 30 mg tab Active levalbuterol (XOPENEX) 1.25 MG/3ML nebulizer solution Take 3 mLs (1.25 mg total) by nebulization every 4 (four) hours as needed for Wheezing. Active levothyroxine (SYNTHROID) 112 MCG tablet Take 1 tablet (112 mcg total) by mouth daily. No generic 04/02/20 Active lidocaine (LIDODERM) 5 % Place 1 patch onto the skin daily. As needed Active MAGNESIUM OR Take 200 mg by mouth daily. Active metoprolol succinate ER (TOPROL-XL) 25 MG 24 hr tablet Take 4 tablets (100 mg total) by mouth every evening. 06/04/19 Active potassium chloride CR (MICRO-K) 10 MEQ CR capsule Take 1 capsule (10 mEq total) by mouth 2 (two) times daily. 11/08/19 Active rOPINIRole (REQUIP) 0.5 MG tablet Take 1-2 tablets (0.5-1 mg total) by mouth see administration instructions. 0.5 mg QAM and 1 mg QPM 03/12/20 23 Active zolpidem CR (AMBIEN CR) 12.5 MG tablet Take 1 tablet (12.5 mg total) by mouth nightly. Active ondansetron (ZOFRAN-ODT) 4 MG disintegrating tablet Take 1 tablet (4 mg total) by mouth every 8 (eight) hours as needed for Nausea. 20 tablet 04/25/20 Active HYDROcodone-acetam inophen (NORCO) 5-325 MG tabletIndications: Acute Pain < 3 Day Supply,Acute Pain < 7 Day Supply Take 1 tablet by mouth every 8 (eight) hours as needed for Pain. Indications: Acute Pain < 3 Day Supply, Acute Pain < 7 Day Supply 10 tablet 04/25/20 Active pantoprazole EC (PROTONIX) 40 MG tablet Take 1 tablet (40 mg total) by mouth daily. 02/16/20 Active spironolactone (ALDACTONE) 25 MG tablet Take 1-2 tablets (25-50 mg total) by mouth see administration instructions. 50 mg QAM; 25 mg QPM 01/10/20 Active acetaminophen-code ine (TYLENOL #3) 300-30 MG tabletIndications: Acute Pain < 3 Day Supply Take 1 tablet by mouth every 6 (six) hours as needed for Pain (significant pain). Indications: Acute Pain < 3 Day Supply 5 tablet 04/27/20 Active ALPRAZolam (XANAX) 0.5 MG tablet Take 1 tablet (0.5 mg total) by mouth daily as needed for Anxiety. Active linaCLOtide (LINZESS) 145 MCG capsule Take 1 capsule (145 mcg total) by mouth every morning before breakfast. Take on empty stomach at least 30 minutes prior to the first meal of the day. Swallow whole. Do not open capsule or chew. Active rivaroxaban (XARELTO) 20 MG Tab tablet Take by mouth daily with supper. Take with food Active bisacodyl EC (DULCOLAX) 5 MG Tab EC tablet Take 1 tablet (5 mg total) by mouth nightly as needed. at bedtime. Active metOLazone (ZAROXOLYN) 5 MG tablet Take 1 tablet (5 mg total) by mouth 3 (three) times a week. Friday - Friday - Friday Take 30 minutes before bumex, patient to only take if weight is <10 pounds Active losartan (COZAAR) 25 MG tablet Take 0.5 tablets (12.5 mg total) by mouth daily. Active allopurinol (ZYLOPRIM) 300 MG tablet Take 1 tablet (300 mg total) by mouth daily. Active bumetanide (BUMEX) 1 MG tablet Take 3 tablets (3 mg total) by mouth every morning. Active bumetanide (BUMEX) 1 MG tablet Take 2 tablets (2 mg total) by mouth nightly. Active Active Problems Problem Noted Date Diagnosed Date Weakness 06/17/2024 Epistaxis 04/25/2023 Family History Medical History Relation Comments Alcohol Abuse Father Heart Father Cancer Mother colon Relation Status Comments Father Mother Alive Social History Tobacco Use Types Packs/Day Years Used Date Smoking Tobacco: Never Smokeless Tobacco: Never Alcohol Use Standard Drinks/Week Comments Never 0 (1 standard drink = 0.6 oz pur e alcohol) B1300 Health Literacy Answer Date Recor ded How often do you need to hav e someone help you when you read instructions, pamphlets, or other written material from your doctor or pharmacy? Never 06/17/2024 [facility] Utilities Answer Date Recorded In the past 12 months has e [employer], gas, oil, or water [employer] threatened to shut off services in your home? No 06/17/2024 Humiliation, Afraid, Rape, and Kick questionnair e Answer Date Recorded Within the last year, have y ou been afraid of your partner or ex-partner? No 06/17/2024 Within the last year, have y ou been humiliated or emotionally abused in other ways by your partner or ex-partner? No Within the last year, have y ou been kicked, hit, slapped, or otherwise physically hurt by your partner or ex-partner? No 06/17/2024 Within the last year, have y ou been raped or forced to have any kind of sexual activity by your partner or ex-partner? No 06/17/2024 Social Connection and Isolat ion Panel [NHANES] Answer Date Recorded In a typical week, how many times do you talk on the phone with family, friends, or neighbors? More than three times a week 06/17/2024 How often do you get togethe r with friends or relatives? Once a week 06/17/2024 How often do you attend chur ch or catholic services? More than 4 times per year 06/17/2024 Do you belong to any clubs o r organizations such as baptism groups, unions, fraternal or athletic groups, or school groups? No 06/17/2024 How often do you attend meet ings of the clubs or organizations you belong to? Never 06/17/2024 Are you , , di vorced, , never , or living with a partner? 06/17/2024 AUDIT-C Answer Date Recorded Q1: How often do you have a drink containing alcohol? Never 06/17/2024 Q2: How many drinks containi ng alcohol do you have on a typical day when you are drinking? Patient does not drink Q3: How often do you have si x or more drinks on one occasion? Never 06/17/2024 Overall Financial Resource Strain (CARDIA) Answe r Date Recorded How hard is it for you to pa y for the very basics like food, housing, medical care, and heating? Not hard at all 06/17/2024 PHQ-2 Answer Date Recorded Patient Health Questionnaire-2 Score 2 06/17/2024 [facility] - Occupational Stress Questionnaire Answer Date Recorded Do you feel stress - tense, restless, nervous, or anxious, or unable to sleep at night because your mind is troubled all the time - these days? Not at all 06/17/2024 Exercise Vital Sign Answer Date Recorde d On average, how many days pe r week do you engage in moderate to strenuous exercise (like a brisk walk)? 0 days 06/17/2024 On average, how many minutes do you engage in exercise at this level? 0 min 06/17/2024 Hunger Vital Sign Answer Date Recorded Within the past 12 months, y ou worried that your food would run out before you got the money to buy more. Never true 06/17/19 25 Within the past 12 months, t he food you bought just didn't last and you didn't have money to get more. Never true 06/17/2024 PRAPARE - Transportation Answer Date Re corded In the past 12 months, has l ack of transportation kept you from medical appointments or from getting medications? No 06/05 In the past 12 months, has l ack of transportation kept you from meetings, work, or from getting things needed for daily living? No 06/17/2024 Housing Stability Vital Sign Answer Amadeo e Recorded In the last 12 months, was t here a time when you were not able to pay the mortgage or rent on time? No 06/17/2024 In the past 12 months, how m any times have you moved where you were living? 0 06/17/2024 At any time in the past 12 m [facility], were you homeless or living in a retirement (including now)? 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 Legal Sex Female 12:27 PM SUNGLASS CLIP ATTACHER Gender Identity Female 06/17/2024 9:18 PM SUNGLASS CLIP ATTACHER Sexual Orientation Straight 06/17/2024 9: 18 PM SUNGLASS CLIP ATTACHER Last Filed Vital Signs Vital Sign Reading Time Taken Comments Blood Pressure 105/66 06/20/2024 7:57 AM SUNGLASS CLIP ATTACHER Pulse 80 06/20/2024 7:57 AM SUNGLASS CLIP ATTACHER Temperature 36.1 C (97 F) 06/20/2024 7:57 AM SUNGLASS CLIP ATTACHER Respiratory Rate 20 06/20/2024 7:57 AM SUNGLASS CLIP ATTACHER Oxygen Saturation 97% 06/20/2024 7:57 AM SUNGLASS CLIP ATTACHER Inhaled Oxygen Concentration - - Weight 103.2 kg (227 lb 8.2 oz) 06/20/2024 5:01 AM SUNGLASS CLIP ATTACHER Height 167.6 cm (5' 6) 06/17/2024 9:00 PM SUNGLASS CLIP ATTACHER Body Mass Index 36.72 06/17/2024 9:00 PM SUNGLASS CLIP ATTACHER Plan of Treatment Health Maintenance Due Date Last Done Comments Colorectal Cancer Screening Colonoscopy (10 Years) 1955 Hepatitis C 09/18/1971 Annual Medicare Wellness Visit 2018 COVID-19 Vaccine ( season) 2024 08/07/2020, 07/17/2020 Mammogram Screening 04/30/2026 04/30/2024, 04/21/2024, 09/10/2022, Additional history exists RSV Immunization or 60+ Years (1 - 1-dose 75+ series) 2028 DTaP, Tdap and Td Vaccines (3 - Td or Tdap) 06/15/2029 06/15/2019, 05/05/2009 Zoster Vaccines Completed 03/08/2019, 08/2018, 01/05/2019, Additional history exists Dexa Scan (General) Completed 09/10/2022, 09/10/2022, 06/08/2020, Additional history exists Pneumococcal Vaccine: 50+ Years Completed 11/14/2023, 04/07/2018, 02/13/2016 Meningococcal B Vaccine Aged Out No l onger eligible based on patient's age to complete this topic Meningococcal Vaccine Aged Out No katya lisandra eligible based on patient's age to complete this topic RSV Immunizations Under 20 Months Aged Out No longer eligible based on patient's age to complete this topic Goals Goal Patient Goal Type Associated Problems Recent Progress Patient-Stated? Author Patient will return to prior living situation and remain independent in ADLs upon discharge from hospital Lifestyle No Marialuisa Cruz RN Medical Devices Implanted Type Area Plant Safety Engineer Device Identifier Shelf Expiration Date Model / Serial / Lot Agent Hemostatic Thrombin Sterile Kit Matrix Surgiflo 8ml - [id number] Implanted:Qty: 1 on 04/22/2023 by Crescencio Lees MD at [facility] Sealant N/A: Nose [employer] 06/04/2024 [id number] / / [id number] Agent Hemostatic Thrombin Sterile Kit Matrix Surgiflo 8ml - [id number] Implanted:Qty: 1 on 04/22/2023 by Crescencio Lees MD at [facility] Sealant N/A: Nose [employer] 04/03/2024 [id number] / / [id number] Insurance AET [facility] Advance Directives * DNR (Latest Code Status on File) Date Activated Date Inactivated Comments 06/18/2024 9:38 AM 06/20/2024 1:31 PM * Full Code Date Activated Date Inactivated Comments 06/17/2024 10:07 PM 06/18/2024 9:38 AM * Full Code Date Activated Date Inactivated Comments 04/25/2023 6:55 PM 04/26/2023 8:12 PM Care Teams Truckload Owner Operator Relationship Specialty Start Date End Date La Thacker NP [address] [place] [address] PCP - General NURSE PRACTITIONER 04/16/23 Maycol Foster MD [address] [place] [address] CARDIOVASCULAR DISEASE 04/16/23
--- OUTSIDE RECORDS SUMMARY | 2025-01-06 15:35 | XMS_ITS | Patient Health Record ---
Author Organization [facility] Address [address] [facility] [place] [address] Care Team Providers Care Order Desk Clerk Name Role Phone Cristy Corbett Unavailable [phone] Reason For Referral No Information Medications Medication SIG (Take, Route, Frequency, Duration) Notes Start Date End Date Status Coumadin - 6mg/7mg - *Reorder from [facility] for eRx and Interaction Alerts* Active Melatonin 10 MG Oral Acti ve Klor-Con 20 mEq Oral Acti ve busPIRone HCl 5 MG take 1 tablet (5 mg) by oral route 2 times per day Oral 2 Active Multi-Vitamin take 1 tablet by oral route once Oral 1 Active Bumetanide - 3 mg take 1 tablet qod oral *Pick strength-form from [facility] for eRX* Active Synthroid 112 MCG take 1 tablet (112 mcg) by oral route once daily Oral 1 Active Losartan Potassium 25 MG take 1 tablet (25 mg) by oral route once daily Oral 1 Active Zolpidem Tartrate ER 12.5 MG take 1 tablet (12.5 mg) by oral route once daily at bedtime Oral 1 Active MiraLax 17 GM Oral Active DULoxetine HCl 60 MG take 1 capsule (60 mg) by oral route once daily for 30 days Oral 1; Duration: 30 Active Spironolactone 25 MG take 50mg in the morning then 25mg in the evening Oral Active Tylenol 8 Hour Arthritis Pain 650 MG prn Oral Active ZyrTEC Allergy 10 MG Oral Active Ropinirole oral *Reorder from [facility] for eRx and Interaction Alerts* Active Calcium 600 with Vitamin D3 bid oral *Reorder from [facility] for eRx and Interaction Alerts* Active Xopenex inhalation [facility]* Active Cymbalta 30 MG take 1 capsule (30 mg) by oral route 2 times per day Oral 2 Active Plan Of Treatment No Information Insurance Providers Payer Name Payer Address Payer Phone Subscriber Number Group Number Insured Name Patient Relationship to Insured Coverage Start Date Coverage End Date Aet[employer] - Choice/O A [address] [place] [phone] [id number] Kacie Fischer Self - patient is the insured [employer] [address] [place] [address] [id number] Kacie Fischer Self - patient is the insured 9 [employer] [address] [place], [place] [id number] Kacie Fischer Self - patient is the insured [facility] nk [address] [place] [address] [id number] RepKacie gonzalez Self - patient is the insured DO [place] USE [place] [id number] Kacie Fischer Self - patient is the insured 8 DO NOT USE [id number] Kacie Fischer Self - patient is the insured DO NOT USE [place], [place] [id number] Kacie Fischer Self - patient is the insured 9 [facility] nk - Open Access [address] [place], [place] [id number] [id number] Kacie Fischer Self - patient is the insured 8 Medical (General) History Surgical History Surgery Date(Month/Year) Sinus Surgery; 2017-08-11 gallbladder; 2017-08-11 Aspiration; 2017-08-11 Hernia; 2017-08-11 Hysterectomy; 2017-08-11 Knee replacement; 2017-08-11 tonsilectomy; 2017-08-11 carpal tunnel; 2017-08-11 heart valve: 10/13/2019 - Open heart; fixed tricuspid value; new pacemaker, new leads , Date of Procedure: 09/14/2019; 2019-10-13
--- OUTSIDE RECORDS SUMMARY | 2025-01-06 15:35 | XMS_ITS | Encounter Summary ---
Author Organization [facility] Address 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
--- OUTSIDE RECORDS SUMMARY | 2025-01-06 15:35 | XMS_ITS | Patient Health Record ---
Author Organization [facility] Address [address] [place], [place] [id number] Care Team Providers Care Non Destructive Testing Supervisor Name Role Phone TatyanabarbarabarbaraVAN Unavailable [phone] Daily Bhagat Unavailable Unavailable Reason For Referral No Information Medications Medication SIG (Take, Route, Frequency, Duration) Notes Start Date End Date Status levalbuterol 0.103 MG/ML Inhalation Solution [Xopenex] INTRAPULMONARY levalbuterol 0.103 MG/ML Inhalation Solution [Xopenex]Original Medicationlevalbuterol 0.103 MG/ML Inhalation Solution [Xopenex] *[facility] 017 Active duloxetine 60 MG Delayed Release Oral Capsule [Cymbalta] ORAL duloxetine 60 MG Delayed Release Oral Capsule [Cymbalta]Original Medicationduloxetine 60 MG Delayed Release Oral Capsule [Cymbalta] *Reorder from [facility] for eRx and Interaction Alerts* 017 Active cetirizine hydrochloride 10 MG Oral Tablet [Zyrtec] ORAL cetirizine hydrochloride 10 MG Oral Tablet [Zyrtec]Original Medicationcetirizine hydrochloride 10 MG Oral Tablet [Zyrtec] *[facility]s* 017 Active calcium carbonate 1250 MG / cholecalciferol 1000 UNT / vitamin K 0.4 MG Chewable Tablet ORAL calcium carbonate 1250 MG / cholecalciferol 1000 UNT / vitamin K 0.4 MG Chewable TabletOriginal Medicationcalcium carbonate 1250 MG / cholecalciferol 1000 UNT / vitamin K 0.4 MG Chewable Tablet *Reorder from [facility] 017 Active Losartan Potassium 50 MG Oral Tablet ORAL losartan potassium 50 MG Ora l TabletOriginal Medicationlosartan potassium 50 MG Oral Tablet *Reorder from [facility] for eRx and Interaction Alerts* 017 Active ubidecarenone 30 MG Oral Capsule ORAL ubidecarenone 30 MG Oral CapsuleOriginal Medicationubidecarenone 30 MG Oral Capsule *Reorder from [facility] for eRx and Interaction Alerts* 017 Active Spironolactone 25 MG Oral Tablet ORAL spironolactone 25 MG Oral TabletOriginal Medicationspironolactone 25 MG Oral Tablet *Reorder from [facility] for eRx and Interaction Alerts* 017 Active ropinirole 0.5 MG Oral Tablet ORAL ropinirole 0.5 MG Oral TabletOriginal Medicationropinirole 0.5 MG Oral Tablet *Reorder from [facility] for eRx and Interaction Alerts* 017 Active Furosemide 40 MG Oral Tablet ORAL furosemide 40 MG Oral TabletOriginal Medicationfurosemide 40 MG Oral Tablet *Reorder from [facility] for eRx and Interaction Alerts* 017 Active Microencapsulated potassium chloride 20 MEQ Extended Release Oral Tablet [Klor-Con] ORAL Microencapsulated potassium chloride 20 MEQ Extended Release Oral Tablet [Klor-Con]Original MedicationMicroencapsulated potassium chloride 20 MEQ Extended Release Oral Tablet [Klor-Con] *Reorder from [facility] f 017 Active ALPRAZolam 0.25 MG Oral Tablet ORAL alprazolam 0.25 MG Oral TabletOriginal Medicationalprazolam 0.25 MG Oral Tablet *Reorder from [facility] for eRx and Interaction Alerts* 017 Active levothyroxine sodium 0.075 MG Oral Tablet ORAL levothyroxine sodium 0.075 M G Oral TabletOriginal Medicationlevothyroxine sodium 0.075 MG Oral Tablet *Reorder from [facility] for eRx and Interaction Alerts* 017 Active beclomethasone dipropionate 0.04 MG/ACTUAT Metered Dose Inhaler INTRAPULMONARY beclomethasone dipropionate 0.04 MG/ACTUAT Metered Dose InhalerOriginal Medicationbeclomethasone dipropionate 0.04 MG/ACTUAT Metered Dose Inhaler *Reorder from [facility] for eRx and Interaction Alerts* 017 Active 200 ACTUAT levalbuterol 0.045 MG/ACTUAT Metered Dose Inhaler [Xopenex] INTRAPULMONARY 200 ACTUAT levalbuterol 0.04 5 MG/ACTUAT Metered Dose Inhaler [Xopenex]Original [id number] ACTUAT levalbuterol 0.045 MG/ACTUAT Metered Dose Inhaler [Xopenex] *Reorder from [facility]Rx and Interaction [place] 017 Active 0.5 ML sumatriptan 8 MG/ML Cartridge 0.5 ML sumatriptan 8 MG/ML CartridgeOriginal Medication0.5 ML sumatriptan 8 MG/ML Cartridge *Reorder from [facility] for eRx and Interaction Alerts* 017 Active Plan Of Treatment No Information Insurance Providers Payer Name Payer Address Payer Phone Subscriber Number Group Number Insured Name Patient Relationship to Insured Coverage Start Date Coverage End Date [facility] [address] [address] [place] [address] [id number] BINH BUCHANAN Self - patient is the insured for Life ([employer] [address] [place], [place] [id number] ANGELES BUCHANAN Spouse - patient is the spouse of the insured
--- OUTSIDE RECORDS SUMMARY | 2025-01-06 15:35 | XMS_ITS | Clinical Summary ---
Author Organization [facility] Address [address] [place] [address] Phone Care Team Providers Care Parimutuel Ticket Checker Name Role Phone Aaliyah Villagran MD Primary Care Provider [phone] Allergies Active Allergy Reactions Criticality Noted Date Comments Cottonseed Oil Swelling Low 05/23/2015 Isosorbide Mononitrate Shortness of Breath/Wheezing,Other (See Comments) High 05/23/2015 Latex Rash,Swelling Low 05/23/2015 Meloxicam Shortness of Breath/Wheezing,Other (See Comments) High 05/23/2015 Topiramate Rash Low 05/23/2015 Medications naproxen sodium (ALEVE) 220 mg Tablet Take 220 mg by mouth every 4 hours as needed for Pain, Moderate. Active HYDROcodone-maday taminophen (NORCO) 7.5-325 mg Tablet Take 1 Tablet by mouth every 6 hours as needed for Pain, Moderate. Active losartan (COZAAR) 50 mg tablet Take 50 mg by mouth every 12 hours. Active amLODIPine (NORVASC) 10 mg tablet Take 10 mg by mouth daily. Active furosemide (LASIX) 20 mg tabletIndicatio ns:one a day and every other day an additional on in afternoon Take 20 mg by mouth daily. Active spironolactone (ALDACTONE) 5 mg/mL oral suspension compound Take by mouth. Active DULoxetine (CYMBALTA) 60 mg Capsule, Delayed Release(E.C.) Take 60 mg by mouth daily at bedtime. Active DULoxetine (CYMBALTA) 30 mg Capsule, Delayed Release(E.C.) Take 30 mg by mouth daily at bedtime. Active clarithromycin (BIAXIN) 125 mg/5 mL suspension Take 125 mg by mouth every 12 hours. Active clonazePAM (KLONOPIN) 0.5 mg Tablet Take 0.5 mg by mouth Daily LATE. Active levothyroxine 75 mcg tablet Take 75 mcg by mouth daily at bedtime. Active zolpidem (AMBIEN) 5 mg tablet Take 5 mg by mouth nightly as needed for Insomnia. Active ALPRAZolam (XANAX) 0.25 mg tablet Take 0.25 mg by mouth nightly as needed for Anxiety (2 tablets PRN). Active eletriptan (RELPAX) 40 mg Tablet Take 40 mg by mouth every 2 hours as needed for Migraine may repeat in 2 hours; max dose 80mg in 24 hours . Active Active Problems Problem Noted Date Diagnosed Date Slipped Quin fundoplication 05/23/2015 Family History Medical History Relation Name Comments Unknown Brother heart murmur Heart Disease Father Other Father alcoholic Stroke Father Other Maternal Grandmother migrain es, lupus Healthy Mother Cancer Other thyroid Heart Disease Paternal Grandfather Stroke Paternal Grandfather Cancer Paternal Grandmother thyroid Cancer Sister thyroid Relation Name Status Comments Brother Alive Father Maternal Grandfather Maternal Grandmother Mother Alive Other Paternal Grandfather Paternal Grandmother Sister Alive Social History Tobacco Use Types Packs/Day Years Used Date Smoking Tobacco: Never Alcohol Use Standard Drinks/Week Comments Not Asked 0 (1 standard drink = 0.6 oz pur e alcohol) Comments Unknown Sex and Gender Information Value Date Recorded Sex Assigned at Not on file Legal Sex Female 4:51 AM [employer] FIN[employer] Gender Identity Not on file Sexual Orientation Not on file Last Filed Vital Signs Vital Sign Reading Time Taken Comments Blood Pressure 144/71 05/23/2015 2:00 PM COAT FINISHER rt wrist Pulse 61 05/23/2015 2:00 PM COAT FINISHER Temperature - - Respiratory Rate - - Oxygen Saturation - - Inhaled Oxygen Concentration - - Weight 115.7 kg (255 lb) 05/23/2015 2:00 PM COAT FINISHER Height 170.2 cm (5' 7) 05/23/2015 2:00 PM COAT FINISHER Body Mass Index 39.94 05/23/2015 2:00 PM COAT FINISHER Plan of Treatment Health Maintenance Due Date Last Done Comments DTAP/TDAP/TD VACCINES (1 - Tdap) 1972 BREAST CANCER SCREENING 1993 COLORECTAL SCREENING 1998 Colorectal Cancer Screening 1998 FIT-DNA Q 3 years 1998 FIT/FOBT Q 1 year 1998 Flex Sig/CT Colonography Q 5 years 1998 PNEUMOCOCCAL VACCINE 50+ YEARS (1 of 1 - PCV) 09/18/19 04 ZOSTER VACCINE (1 of 2) 09/18/2003 OSTEOPOROSIS SCREENING 2018 INFLUENZA VACCINE (#1) 2024 RSV VACCINE (60+ or ) (1 - 1-dose 75+ series) 2028 Insurance [employer] OPEN ACCESS Care Teams Parimutuel Ticket Checker Relationship Specialty Start Date End Date Aaliyah Villagran MD [address] [phone] PCP - General Family Practice 05/23/15
[2025-01-06 16:12] LABS: Hematocrit 28.1 % (37.0-47.0); Hemoglobin 8.0 g/dL (12.0-15.0); Immature Granulocyte Percent A 0.3 % (0-0.5); Lymphocytes Absolute Auto 0.83 K/mm3 (0.9-3.2); Mean Corpuscular HGB Conc 28.5 g/dl (32-36); Mean Corpuscular Hemoglobin 23.0 pg (26-34); Mean Corpuscular Volume 80.7 fl (80-100); Nucleated Red Blood Cells Absolute Auto 0.000 K/mm3 (0.0-0.012); Nucleated Red Blood Cells Perc 0.0 % (0.0-0.2); Platelet Count Result 184 k/mm3 (150-375); Red Blood Count 3.48 M/mm3 (4.2-5.4); White Blood Count 3.9 K/mm3 (4.5-10.0)
[2025-01-06 16:25] LABS: CRP < 0.5 mg/dL (<1.0); Hypochromasia 1+; Ovalocytes 1+; Schistocytes None Seen
== END 2025-01-06 15:31 | disposition home or self-care (01) ==
PROVIDERS: Visit Provider Nurse Practitioner Family
DX: Z11.9 Encounter for screening for infectious and parasitic diseases, unspecified (principal); Z79.899 Other long term (current) drug therapy
CPT/HCPCS: 36415; 85025; 85652; 86140